=== PATIENT | female | born 1970 | race Caucasian/White ===

== ENCOUNTER 2016-04-20 17:53 | Emergency (ER) | payer OTHER ==
[~2016-04-20] VITALS: Ht 154.3 cm; Wt 58.1 kg
[~2016-04-20 17:53] MED LIST: ALBUTEROL SULFAT3 M1 INH; BENZONATATE200 M1 PO; BUTRANS20 MCG/HR TOP; CYCLOBENZAPRINE5 M1; DESIPRAMINE HCL25 MG PO; DUONEB 3 MG/3 ML3 ML INH/SOL; INTUNIV4 MG PO; LEVAQUIN500 M1 PO; LEVAQUIN500 MG PO; LYRICA150 MG PO; MEDROL DOSEPAK1 PAC PO; MEDROL4 M2 PO; MULTIVITAMIN1 TAB PO; PERCOCET 325 MG1 TA2 PO; PRISTIQ100 MG PO; PROAIR HFA0.09 MG/Ac INH; PROPRANOLOL ER80 MG PO; TESSALON PERLE100 M1 PO; TESSALON PERLE100 MG PO; TIZANIDINE4 MG PO; TREXIMET 500 MG1 TAB PO; TUDORZA PR400 MCG/Ac INH; ZITHROMAX Z-PA250 M1 PO; ZITHROMAX250 M2 PO
[2016-04-20 18:12] VITALS: BP 102/68
--- NOTE | 2016-04-20 18:32 | ED INFLUENZA/URI COMPLAINT ---
History of Present Illness General Chief Complaint: Upper Respiratory Sx/Fever Stated Complaint: KIDNEY PAIN; COUGH; URI SYMPTOMS Source: patient, old records Exam Limitations: no limitations Vital Signs & Intake/Output Vital Signs & Intake/Output Vital Signs Date Time Temp Pulse Resp B/P Pulse O2 O2 Flow FiO2 Ox Delivery Rate 04/20 1812 98.5 77 20 102/68 98 Room Air ED Intake and Output 04/21 0000 04/20 1200 Intake Total 0 Output Total Balance 0 Intake, Oral 0 Patient 128 lb Weight Allergies Coded Allergies: methylprednisolone (Severe, SHORTNESS OF BREATH, HIVES 04/20/16) codeine (RASH, NIGHTMARES 04/20/16) morphine (BEHAVIORAL CHANGES 04/20/16) Reconcile Medications Aclidinium [place] (Tudorza Pressair) 400 MCG/Actuation ROMELIA 400 MCG INH BID PRN ASTHMA (Reported) Albuterol Sulfate (Proair Hfa) 0.09 MG/Actuation ROMELIA 2 PUFF INH PRN ASTHMA ( Reported) Albuterol Sulfate 3 ML NEB 1 Vial INH Q6H PRN SOB Benzonatate (Tessalon Perle) 100 MG CAPSULE 1 CAP PO TID BRONCHITIS Buprenorphine (Butrans) 20 MCG/HR TDM 1 PAT TOP QSAT PAIN (Reported) CYCLOBENZAPRINE HCL (Cyclobenzaprine Hydrochloride) (Unknown Strength) TAB ( Unknown Dose) UNKNOWN (Reported) Desipramine Hydrochloride (Desipramine HCl) 25 MG TAB 1-2 TAB PO QHS MIGRAINES (Reported) Desipramine Hydrochloride (Desipramine HCl) 25 MG TAB 1 TAB PO DAILY MIGRAINES (Reported) Desvenlafaxine Succinate (Pristiq ER) [address] 1 TAB PO DAILY MENTAL HEALTH (Reported) GUANFACINE HCL (Intuniv) [address] 1 TAB PO QAM ADHD (Reported) Levofloxacin (Levaquin) 500 MG TABLET 1 TAB PO DAILY bronchitis Levofloxacin (Levaquin) 500 MG TABLET 1 TAB PO DAILY BRONCHITIS Methylprednisolone. (Medrol) 4 MG TAB.DS.PK 1 DP PO AD BRONCHITIS 6 on day 1 then reduce by one tablet daily until gone Multivitamin (Multiple Vitamins) 1 TAB TAB 1 TAB PO DAILY SUPPLEMENT ( Reported) Prednisone 10 MG TABLET 0 PO DAILY bronchitis 5 tabs po day 1 4 tabs po day 2 3 tabs po day 3 2 tabs po day 4 1 tab po day 5 Pregabalin (Lyrica) 150 MG CAP 1 CAP PO BID FIBROMYALGIA (Reported) PROPRANOLOL HCL (Propranolol HCl ER) 80 MG CER 1 CAP PO QHS MIGRAINES ( Reported) SUMATRIPTAN SUCC/NAPROXEN SOD (Treximet 85-500 MG Tablet) 1 TAB TAB 1 TAB PO AD PRN MIGRAINES (Reported) TIZANIDINE HCL (Tizanidine) 4 MG TAB 1 TAB PO BID MIGRAINES (Reported) Triage Note: TRIAGE: PT TO ER C/C PROD COUGH W/GREEN AND BROWN PHLEGM REPORTED, RUNNY NOSE, FATIGUED, DIZZY, LOSS OF APPETITE, DRY MOUTH, R SIDE BACK PAIN, RT SIDE ABD PAIN, LUNG PAIN. ONSET WITH COUGHING 4 DAYS AGO. Triage Nurses Notes Reviewed? yes Onset: Gradual Duration: week(s): (1), constant Timing: recent history Severity: mild, moderate Severity Numbers: 5 Prior Episodes/Possible Cause: occassional episodes No Modifying Factors: none Associated Symptoms: cough, earache, muscle aches, nasal congestion, wheezing : No Patient currently breastfeeds: No HPI: Is a 45-year-old female with history of asthma current smoker who presents to emergency room for evaluation complaining of a productive cough of green to brown sputum associated with rhinorrhea and congestion left ear pain sore throat for the last 4 days associated with right lower abdominal pain and right-sided back pain for the past 2 days. She denies any nausea vomiting or diarrhea. She has not attempted taking any [id number] medications for her symptoms. There are no modifying factors or associated symptoms otherwise she's been using her nebulizer and inhalers with improvement however she's not sought care for the symptoms until today. There is no chest pain dizziness lightheadedness no sick contacts recent travel (GUILLERMO CHO) Past History Travel History Traveled to [place] past 21 day No Medical History Any Pertinent Medical History? see below for history Neurological: migraine, multiple sclerosis EENT: NONE Cardiovascular: NONE Respiratory: asthma Gastrointestinal: NONE Hepatic: NONE Renal: NONE Musculoskeletal: chronic back pain, disk herniation Psychiatric: anxiety, ADHD Endocrine: NONE Blood Disorders: NONE Cancer(s): NONE PHYSICIAN NON INVASIVE CARDIOLOGIST/Reproductive: NONE Surgical History Surgical History: hysterectomy, NERVE STIMULATOR REMOVAL Psychosocial History Who do you live with Family Services at Home None What is your primary language Senegalese Tobacco Use: Current Daily Use Daily Tobacco Use Amount/Type: => 5 Cigarettes daily ETOH Use: occasional use Illicit Drug Use: denies illicit drug use Family History Hx Contributory? No (GUILLERMO CHO) Review of Systems Review of Systems Constitutional: Reports: see HPI. All Other Systems: Reviewed and Negative Comments Review of systems: See HPI, All other systems negative. Constitutional, chills no fever, no malaise HEENT: no sore throat congestion, ear pain Cardiovascular: No chest pain , no palpitation Skin, no jaundice no rashes, no change in skin Respiratory: No dyspnea cough no sputum no hemoptysis GI: No nausea no vomiting, no diarrhea, no bloating/constipation : No dysuria No hematuria, no frequency, no discharge Muscle skeletal: No joint pain, no joint swelling, no back pain, no neck pain, Neurologic: No numbness, no headache Psych: No stress n Heme/endocrine: No bruising no bleeding Immunology: No lymphadenopathy, (GUILLERMO CHO) Physical Exam Physical Exam General Appearance: well developed/nourished, no apparent distress, alert, awake Ears, Nose, Throat: normal ENT inspection, moist mucous membrane, hearing grossly normal, Tympanic normal Comments: Well-developed well-nourished person in no acute distress Head/Face: Atraumatic, no maxillary/frontal sinus tenderness, no facial swelling Eyes: PERRL, EOMI, no conjunctival injection. No nystagmus Ear:External auditory canal and Tympanic membranes clear, no erythema, no FB. Nose: atraumatic.Normal inspection: No bleeding, no septal hematoma Throat: Moist mucous membranes.Pharynx normal. No pharyngeal erythema/exudate seen. No stridor/drooling or assymetry. No swelling or edema. Neck: Supple, no lymphadenopathy, FROM Back: Nontender, no CVA tenderness. Full range of motion Cardiovascular: Regular rate and rhythms no murmurs rubs Respiratory: Chest nontender.There were no bony deformities, no asymmetry. No respiratory distress. Patient speaking in full complete sentences. Breath sounds clear to auscultation bilaterally: NO W/R/R Abdomen: Soft, nontender nondistended, no appreciable organomegaly. Normal bowel sounds. No rebound/guarding Extremity: No edema, full range of motion of extremities Neuro: Alert oriented x3, motor sensory normal, There were no obvious focal neurologic abnormalities. Skin: No appreciable rash on exposed skin, skin is warm and dry. Psych: Mood and affect is normal, memory and judgment is normal. Core Measures Severe Sepsis Present: No Septic Shock Present: No (GUILLERMO CHO) Progress Differential Diagnosis: influenza, otitis, pneumonia, pharyngitis, sinusitis, BRONCHITIS uti URI PYELONEPHRITIS Plan of Care: Orders Procedure Date/time Status RAPID VIRAL INFLUENZA A 04/20 1842 Complete URINALYSIS 04/20 1842 Complete CBC WITHOUT DIFFERENTIAL 04/20 1842 Complete BASIC METABOLIC PANEL 04/20 1842 Complete Laboratory Tests 04/20/161924: Urine Color YEL, Urine Clarity CLEAR, Urine pH 6.0, Ur Specific Orient 1.010, Urine Protein NEG, Urine Ketones NEG, Urine Nitrite NEG, Urine Bilirubin NEG, Urine Urobilinogen 0.2, Ur Leukocyte Esterase NEG, Ur Microscopic EXAM NOT REQUIRED, Urine Hemoglobin NEG, Urine Glucose NEG 04/20/161899: Anion Gap 8, Estimated GFR > 60, BUN/Creatinine Ratio 7.0, Glucose 72, Calcium 9.0, CBC w Diff NO MAN DIFF REQ, RBC 4.22, MCV 88.5, MCH 30.4, RDW 14.1, MPV 8.3 , Gran % 53.9, Lymphocytes % 35.2, Monocytes % 7.3, Eosinophils % 2.7, Basophils % 0.9, Absolute Granulocytes 4.3, Absolute Lymphocytes 2.8, Absolute Monocytes 0.6, Absolute Eosinophils 0.2, Absolute Basophils 0.1, PUBS MCHC 34.4 Microbiology 04/20 1899 NASOPHARYN: Influenza Virus A & B Rapid Smear - COMP Labs ordered old records reviewed patient afebrile nontoxic-appearing at this time Discussed with the patient at length all of her lab results x-ray findings. I discussed with her need for supportive care per scheduled for Levaquin was provided advised that she can continue with her inhalers and nebulizer treatments as needed abstain from smoking was discussed with the patient at length. Advised follow-up with her primary care physician in one day for return anytime sooner with any concerns they feel couple plan (GUILLERMO CHO) Diagnostic Imaging: Viewed by Me: Radiology Read. Discussed w/RAD: Radiology Read. Radiology Impression: PATIENT: ARTURO CORRALES PRESENT AGE: 45 PATIENT ACCOUNT NO: [id number] : 72 LOCATION: [facility] ORDERING PHYSICIAN: GUILLERMO CHAVEZ SERVICE DATE: 04/20/16 EXAM TYPE: RAD - XRY-CHEST XRAY, PA AND LATERAL EXAMINATION: XR CHEST 2 VIEWS CLINICAL INFORMATION: Fever and cough. COMPARISON: Prior chest radiographs, most recently 12/09/2015. TECHNIQUE: Frontal and lateral views of the chest were obtained. FINDINGS: The heart, great vessels, pulmonary vasculature and mediastinum are normal. The lungs show no focal infiltrate, effusion or pneumothorax. A small benign, calcified right upper lobe granuloma is unchanged. There is no acute osseous abnormality. IMPRESSION: No active cardiopulmonary disease. DICTATED BY: KANNAN VELASCO MD DATE/TIME DICTATED:04/20/161918 BOILER ENGINEER:GERALD DATE/TIME TRANSCRIBED:04/20/161918 CONFIDENTIAL, DO NOT COPY WITHOUT APPROPRIATE AUTHORIZATION. <Electronically signed in Other Vendor System> SIGNED BY: KANNAN VELASCO MD 04/20/161923 Initial ED EKG: none (GUILLERMO CHO) Departure Departure Time of Disposition: 1939 Disposition: HOME OR SELF CARE Condition: Stable Clinical Impression Primary Impression: Bronchitis Referrals: SONIDO LIM MD (PCP/Family) Additional Instructions: Levaquin as directed. Drink plenty of fluids Tylenol Motrin as needed abstain from smoking. Follow-up with her primary care physician this week return with any concerns. These prescriptions were sent to your pharmacy Departure Forms: Customer Survey General Discharge Information Prescriptions: Current Visit Scripts Levofloxacin (Levaquin) 1 TAB PO DAILY #7 TAB Prednisone 0 PO DAILY #15 TAB 5 tabs po day 1 4 tabs po day 2 3 tabs po day 3 2 tabs po day 4 1 tab po day 5 (GUILLERMO CHO) PA/SCIENTIFIC INVESTIGATOR Co-Sign Statement Statement: ED Attending supervision documentation- [] I saw and evaluated the patient. I have also reviewed all the pertinent lab results and diagnostic results. I agree with the findings and the plan of care as documented in the PA's/SCIENTIFIC INVESTIGATOR's documentation. [X] I have reviewed the ED Record and agree with the PA's/SCIENTIFIC INVESTIGATOR's documentation. [] Additions or exceptions (if any) to the PAs/SCIENTIFIC INVESTIGATOR's note and plan are summarized below: [] (AZIZA PAULINO,SELIN Watters)
[2016-04-20 19:04] LABS: ABSOLUTE BASOPHIL COUNT 0.1 /CUMM (0.0-0.2); ABSOLUTE EOSINOPHIL COUNT 0.2 /CUMM (0.0-0.7); ABSOLUTE GRANULOCYTE CT 4.3 /CUMM (1.4-6.5); ABSOLUTE LYMPH COUNT 2.8 /CUMM (1.2-3.4); ABSOLUTE MONOCYTE COUNT 0.6 /CUMM (0.10-0.60); BASOPHIL % 0.9 % (0.0-2.0); EOSINOPHIL % 2.7 % (0-5); GRANULOCYTE % 53.9 % (42.2-75.2); HEMATOCRIT 37.4 % (37-47); MEAN CORPUSCULAR HGB 30.4 PG (27.0-31.0); MEAN CORPUSCULAR HGB CONC 34.4 G/DL (33.0-37.0); MEAN CORPUSCULAR VOLUME 88.5 FL (81.0-99.0); MEAN PLATELET VOLUME 8.3 FL (7.4-10.4); PLATELET COUNT 255 /CUMM (130-400); RBC DISTRIBUTION WIDTH 14.1 % (11.5-14.5); RED BLOOD CELL CT 4.22 /CUMM (4.20-5.40); WHITE BLOOD CELL COUNT 8.1 /CUMM (4.8-10.8)
--- NOTE | 2016-04-20 19:24 | RADIOLOGY REPORT ---
EXAMINATION: XR CHEST 2 VIEWS CLINICAL INFORMATION: Fever and cough. COMPARISON: Prior chest radiographs, most recently 12/09/2015. TECHNIQUE: Frontal and lateral views of the chest were obtained. FINDINGS: The heart, great vessels, pulmonary vasculature and mediastinum are normal. The lungs show no focal infiltrate, effusion or pneumothorax. A small benign, calcified right upper lobe granuloma is unchanged. There is no acute osseous abnormality. IMPRESSION: No active cardiopulmonary disease.
[2016-04-20] MEDS ORDERED: LEVAQUIN500 M1 PO (19:41)
[2016-04-20] MEDS ORDERED: PREDNISONE10 M2 PO (19:41)
== END 2016-04-20 19:47 ==
LOC: ERH 17:53
PROVIDERS: Physician Assistant Medical
DX: J40 Bronchitis, not specified as acute or chronic (principal); Z72.0 Tobacco use; N23 Unspecified renal colic; H92.02 Otalgia, left ear; J02.9 Acute pharyngitis, unspecified
CPT/HCPCS: 81003; 87804; 87804-59

== ENCOUNTER 2016-06-08 05:40 | Emergency (ER) | payer OTHER ==
[~2016-06-08] VITALS: Ht 152.4 cm; Wt 58.1 kg
[~2016-06-08 05:40] MED LIST changes: +PREDNISONE10 M2 PO
--- NOTE | 2016-06-08 05:54 | ED INFLUENZA/URI COMPLAINT ---
History of Present Illness General Chief Complaint: Upper Respiratory Sx/Fever Stated Complaint: URI Source: patient Exam Limitations: no limitations Vital Signs & Intake/Output Vital Signs & Intake/Output Vital Signs Date Time Temp Pulse Resp B/P Pulse O2 O2 Flow FiO2 Ox Delivery Rate 06/08 0658 96.4 75 18 115/75 96 Room Air 06/08 0626 97 06/08 0554 96.1 63 20 111/54 100 Room Air Allergies Coded Allergies: methylprednisolone (Severe, SHORTNESS OF BREATH, HIVES 04/20/16) codeine (RASH, NIGHTMARES 04/20/16) morphine (BEHAVIORAL CHANGES 04/20/16) Reconcile Medications Aclidinium [place] (Tudorza Pressair) 400 MCG/Actuation ROMELIA 400 MCG INH BID PRN ASTHMA (Reported) Albuterol Sulfate (Proair Hfa) 0.09 MG/Actuation ROMELIA 2 PUFF INH PRN ASTHMA ( Reported) Albuterol Sulfate 3 ML NEB 1 Vial INH Q6H PRN SOB Azithromycin (Zithromax) 250 MG TABLET 1 DP PO AD BRONCHITIS 2 the first day followed by 1 for days 2-5 Benzonatate (Tessalon Perle) 100 MG CAPSULE 1 CAP PO TID BRONCHITIS Buprenorphine (Butrans) 20 MCG/HR TDM 1 PAT TOP QSAT PAIN (Reported) CYCLOBENZAPRINE HCL (Cyclobenzaprine Hydrochloride) (Unknown Strength) TAB ( Unknown Dose) UNKNOWN (Reported) Desipramine Hydrochloride (Desipramine HCl) 25 MG TAB 1-2 TAB PO QHS MIGRAINES (Reported) Desipramine Hydrochloride (Desipramine HCl) 25 MG TAB 1 TAB PO DAILY MIGRAINES (Reported) Desvenlafaxine Succinate (Pristiq ER) [address] TAB PO DAILY MENTAL HEALTH (Reported) GUANFACINE HCL (Intuniv) [address] 1 TAB PO QAM ADHD (Reported) Levofloxacin (Levaquin) 500 MG TABLET 1 TAB PO DAILY bronchitis Levofloxacin (Levaquin) 500 MG TABLET 1 TAB PO DAILY BRONCHITIS Methylprednisolone. (Medrol) 4 MG TAB.DS.PK 1 DP PO AD COPD 6 on day 1 then reduce by one tablet daily until gone Methylprednisolone. (Medrol) 4 MG TAB.DS.PK 1 DP PO AD BRONCHITIS 6 on day 1 then reduce by one tablet daily until gone Multivitamin (Multiple Vitamins) 1 TAB TAB 1 TAB PO DAILY SUPPLEMENT ( Reported) Prednisone 10 MG TABLET 0 PO DAILY bronchitis 5 tabs po day 1 4 tabs po day 2 3 tabs po day 3 2 tabs po day 4 1 tab po day 5 Pregabalin (Lyrica) 150 MG CAP 1 CAP PO BID FIBROMYALGIA (Reported) PROPRANOLOL HCL (Propranolol HCl ER) 80 MG CER 1 CAP PO QHS MIGRAINES ( Reported) SUMATRIPTAN SUCC/NAPROXEN SOD (Treximet 85-500 MG Tablet) 1 TAB TAB 1 TAB PO AD PRN MIGRAINES (Reported) TIZANIDINE HCL (Tizanidine) 4 MG TAB 1 TAB PO BID MIGRAINES (Reported) Triage Note: PT TO C/O SOB, COUGH, WHEZZING. Triage Nurses Notes Reviewed? yes Onset: Gradual Duration: week(s): (2) Timing: recent history Severity: moderate No Modifying Factors: none Associated Symptoms: cough, FEVER, THICK SPUTUM, BACK PAIN HPI: This is a 46 old female history of COPD currently smoking, recently diagnosed MS presents to the ER with chief complaint of 2 week history of cough, shortness of breath, thick sputum production and back pain. Positive fever and chills. Past History Travel History Traveled to [place] past 21 day No Medical History Any Pertinent Medical History? see below for history Neurological: migraine, multiple sclerosis EENT: NONE Cardiovascular: NONE Respiratory: asthma, COPD Gastrointestinal: NONE Hepatic: NONE Renal: NONE Musculoskeletal: chronic back pain, disk herniation Psychiatric: anxiety, ADHD Endocrine: NONE Blood Disorders: NONE Cancer(s): NONE SET ILLUSTRATOR/Reproductive: NONE Surgical History Surgical History: hysterectomy, NERVE STIMULATOR REMOVAL Psychosocial History Who do you live with Family Services at Home None What is your primary language Djiboutian Family History Hx Contributory? No Review of Systems Review of Systems Constitutional: Reports: chills, fever. EENTM: Reports: no symptoms. Respiratory: Reports: cough, short of breath, sputum production. Cardiovascular: Denies: chest pain. GI: Reports: no symptoms. Genitourinary: Reports: no symptoms. Musculoskeletal: Reports: no symptoms. Skin: Reports: no symptoms. Neurological/Psychological: Denies: anxiety, ataxia. Hematologic/Endocrine: Reports: no symptoms. Immunologic/Allergic: Denies: splenectomy. All Other Systems: Reviewed and Negative Physical Exam Physical Exam General Appearance: alert, awake, mild distress, thin Head: atraumatic, normal appearance Eyes: Bilateral: normal appearance, PERRL, EOMI. Ears, Nose, Throat: normal ENT inspection, hearing grossly normal, Tympanic normal, pharynx normal Neck: normal inspection, supple, full range of motion Respiratory: decreased breath sounds, wheezing Cardiovascular: regular rate/rhythm Peripheral Pulses: 2+ radial (R), 2+ radial (L) Gastrointestinal: normal bowel sounds, soft, non-tender Extremities: normal inspection, normal capillary refill, normal range of motion, no edema Neurologic/Psych: no motor/sensory deficits, awake, alert, oriented x 3 Skin: intact, normal color, warm/dry Core Measures Severe Sepsis Present: No Septic Shock Present: No Progress Differential Diagnosis: pneumonia, COPD EXACERBATION, BRONCHITIS Plan of Care: Orders Procedure Date/time Status RT ED ORDERS 06/08 600 Active DUONEB, PREDNISONE. CXR ORDERED. SMOKE CESSAITON COUNSELLING X 5 MINUTES. (MINA PAULINO,DWAYNE) Diagnostic Imaging: Viewed by Me: Radiology Read. Discussed w/RAD: Radiology Read. Initial ED EKG: none Comments: PATIENT: ARTURO TERAN PRESENT AGE: 46 PATIENT ACCOUNT NO: [id number] : 72 LOCATION: [facility] ORDERING PHYSICIAN: DWAYNE ENRIQUEZ MD SERVICE DATE: 06/08/16 EXAM TYPE: RAD - XRY-CHEST XRAY, PA AND LATERAL EXAMINATION: XR CHEST CLINICAL INFORMATION: Chest pain and cough. COMPARISON: Chest 04/20/2016 TECHNIQUE: 2 views of the chest were obtained. FINDINGS: Both lungs are well-expanded and clear of acute process. The heart size and pulmonary vascularity is normal. No gross bony abnormality seen. IMPRESSION: Unremarkable chest exam. DICTATED BY: ESTELA PEDRAZA MD DATE/TIME DICTATED:06/08/16723 BENEFITS COORDINATOR:GERALD DATE/TIME TRANSCRIBED:06/08/16723 CONFIDENTIAL, DO NOT COPY WITHOUT APPROPRIATE AUTHORIZATION. <Electronically signed in Other Vendor System> SIGNED BY: ESTELA PEDRAZA MD 06/08/1629 Departure Departure Time of Disposition: 640 Disposition: HOME OR SELF CARE Condition: Stable Clinical Impression Primary Impression: COPD exacerbation Secondary Impressions: Tobacco abuse, Tobacco abuse counseling Referrals: SONIDO LIM MD (PCP/Family) Additional Instructions: TAKE THE MEDROL DOSE PACK, AZITHROMYCIN DIRECTED. CONTINUE YOUR INHALERS AND YOUR ALBUTEROL NEBULIZER NEEDED. STOP SMOKING. FOLLOW UP WITH YOUR DOCTOR IN THE OFFICE. RETURN NEEDED. Departure Forms: Customer Survey General Discharge Information Prescriptions: Current Visit Scripts Azithromycin (Zithromax) 1 DP PO AD #6 TAB 2 the first day followed by 1 for days 2-5 Methylprednisolone. (Medrol) 1 DP PO AD #1 DP 6 on day 1 then reduce by one tablet daily until gone
[2016-06-08] MEDS ORDERED: MEDROL4 M2 PO (06:42)
[2016-06-08] MEDS ORDERED: ZITHROMAX250 M2 PO (06:42)
[2016-06-08 06:58] VITALS: BP 115/75
--- NOTE | 2016-06-08 07:29 | RADIOLOGY REPORT ---
EXAMINATION: XR CHEST CLINICAL INFORMATION: Chest pain and cough. COMPARISON: Chest 04/20/2016 TECHNIQUE: 2 views of the chest were obtained. FINDINGS: Both lungs are well-expanded and clear of acute process. The heart size and pulmonary vascularity is normal. No gross bony abnormality seen. IMPRESSION: Unremarkable chest exam.
== END 2016-06-08 07:01 ==
LOC: ERH 05:40
DX: J44.1 Chronic obstructive pulmonary disease with (acute) exacerbation (principal); Z71.6 Tobacco abuse counseling; F17.210 Nicotine dependence, cigarettes, uncomplicated
CPT/HCPCS: 1263; 1395

== ENCOUNTER 2016-07-10 23:39 | Emergency (ER) | payer OTHER ==
[~2016-07-10] VITALS: Ht 154.9 cm; Wt 59.0 kg
[2016-07-11 00:23] VITALS: BP 97/64
[2016-07-11] MEDS ORDERED: PYRIDIUM200 M1 PO (00:55)
[2016-07-11] MEDS ORDERED: KEFLEX500 M1 PO (00:55)
--- NOTE | 2016-07-11 00:56 | ED GI/GU/ABDOMINAL COMPLAINT ---
History of Present Illness General Chief Complaint: Female Urogenital Problems Stated Complaint: " ?UTI" Source: patient, old records Exam Limitations: no limitations Vital Signs & Intake/Output Vital Signs & Intake/Output Vital Signs Date Time Temp Pulse Resp B/P B/P Pulse O2 O2 Flow FiO2 Mean Ox Delivery Rate 07/11 0023 97.2 78 76 97/64 96 Room Air Allergies Coded Allergies: methylprednisolone (Severe, SHORTNESS OF BREATH, HIVES 04/20/16) codeine (RASH, NIGHTMARES 04/20/16) morphine (BEHAVIORAL CHANGES 04/20/16) Reconcile Medications Aclidinium [place] (Tudorza Pressair) 400 MCG/Actuation ROMELIA 400 MCG INH BID PRN ASTHMA (Reported) Albuterol Sulfate (Proair Hfa) 0.09 MG/Actuation ROMELIA 2 PUFF INH PRN ASTHMA ( Reported) Albuterol Sulfate 3 ML NEB 1 Vial INH Q6H PRN SOB Azithromycin (Zithromax) 250 MG TABLET 1 DP PO AD BRONCHITIS 2 the first day followed by 1 for days 2-5 Benzonatate (Tessalon Perle) 100 MG CAPSULE 1 CAP PO TID BRONCHITIS Buprenorphine (Butrans) 20 MCG/HR TDM 1 PAT TOP QSAT PAIN (Reported) Cephalexin (Keflex) 500 MG CAPSULE 1 CAP PO TID uti CYCLOBENZAPRINE HCL (Cyclobenzaprine Hydrochloride) (Unknown Strength) TAB ( Unknown Dose) UNKNOWN (Reported) Desipramine Hydrochloride (Desipramine HCl) 25 MG TAB 1-2 TAB PO QHS MIGRAINES (Reported) Desipramine Hydrochloride (Desipramine HCl) 25 MG TAB 1 TAB PO DAILY MIGRAINES (Reported) Desvenlafaxine Succinate (Pristiq ER) [address] TAB PO DAILY MENTAL HEALTH (Reported) GUANFACINE HCL (Intuniv) [address] 1 TAB PO QAM ADHD (Reported) Levofloxacin (Levaquin) 500 MG TABLET 1 TAB PO DAILY bronchitis Levofloxacin (Levaquin) 500 MG TABLET 1 TAB PO DAILY BRONCHITIS Methylprednisolone. (Medrol) 4 MG TAB.DS.PK 1 DP PO AD COPD 6 on day 1 then reduce by one tablet daily until gone Methylprednisolone. (Medrol) 4 MG TAB.DS.PK 1 DP PO AD BRONCHITIS 6 on day 1 then reduce by one tablet daily until gone Multivitamin (Multiple Vitamins) 1 TAB TAB 1 TAB PO DAILY SUPPLEMENT ( Reported) Phenazopyridine HCl (Pyridium) 200 MG TABLET 1 TAB PO TID PRN dysuria Prednisone 10 MG TABLET 0 PO DAILY bronchitis 5 tabs po day 1 4 tabs po day 2 3 tabs po day 3 2 tabs po day 4 1 tab po day 5 Pregabalin (Lyrica) 150 MG CAP 1 CAP PO BID FIBROMYALGIA (Reported) PROPRANOLOL HCL (Propranolol HCl ER) 80 MG CER 1 CAP PO QHS MIGRAINES ( Reported) SUMATRIPTAN SUCC/NAPROXEN SOD (Treximet 85-500 MG Tablet) 1 TAB TAB 1 TAB PO AD PRN MIGRAINES (Reported) TIZANIDINE HCL (Tizanidine) 4 MG TAB 1 TAB PO BID MIGRAINES (Reported) Triage Note: TRIAGE: PATIENT TO ER FROM HOME REPORTING "THINK I HAVE A UTI," +BURNING W/ URINATION AND 10/10 R SIDE OF LOW BACK PAIN, THOUGH REPORTS HX CHRONIC BACK PAIN. PATIENT ALSO REPORTING "I HAD A NEUROSTIMULATOR REMOVED FROM MY R BACK IN AND SINCE HAVE BEEN GETTING INFECTIONS AND PAIN AND MY PCP TOLD ME IT'S PROBABLY JUST SCAR TISSUE BUT I WANT TO GET IT CHECKED." Triage Nurses Notes Reviewed? yes LMP (ages 10-50): unknown ? n Is pt currently ? No Onset: Morning Duration: hour(s):, constant, continues in ED Timing: recent history Quality/Severity: aching, moderate Location: right flank, suprapubic Radiation: no radiation Activities at Onset: Urinating Prior Abdominal Problems: similar symptoms Past Sexual History: Unobtainable at this time Modifying Factors: Worsens With: urinating. Associated Symptoms: dysuria, lower back pain HPI: Several hours prior to admission patient complains of dysuria hematuria frequency hesitancy right flank discomfort similar to previous UTI symptoms. Several weeks prior to admission she was treated for UTI with Cipro. She also reports having frequent UTIs as a child. She denies fever chills nausea vomiting diarrhea chest pain cough shortness of breath headache rash. Past History Travel History Traveled to [place] past 21 day No Medical History Any Pertinent Medical History? 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 No Review of Systems Review of Systems Constitutional: Reports: see HPI, malaise. EENTM: Reports: no symptoms. Respiratory: Reports: no symptoms. Cardiovascular: Reports: no symptoms. GI: Reports: no symptoms. Genitourinary: Reports: see HPI, dysuria, frequency, hematuria, hesitation, pain, urgency. Musculoskeletal: Reports: no symptoms. Skin: Reports: no symptoms. Neurological/Psychological: Reports: no symptoms. Hematologic/Endocrine: Reports: no symptoms. Immunologic/Allergic: Reports: no symptoms. All Other Systems: Reviewed and Negative Physical Exam Physical Exam General Appearance: well developed/nourished, alert, awake, anxious Head: atraumatic, normal appearance Eyes: Bilateral: normal appearance, PERRL, EOMI, normal inspection. Ears, Nose, Throat, Mouth: hearing grossly normal, moist mucous membrane Neck: normal inspection, supple, full range of motion, normal alignment Respiratory: normal breath sounds, chest non-tender, no respiratory distress, quiet respiration, lungs clear Cardiovascular: regular rate/rhythm, normal peripheral pulses, norml femoral pulses equa Peripheral Pulses: 4+ carotid (R), 4+ carotid (L) Gastrointestinal: normal bowel sounds, soft, non-tender, no organomegaly Back: normal inspection, normal range of motion, CVA tenderness (R) Extremities: normal range of motion, no ligament instability Neurologic/Psych: no motor/sensory deficits, awake, alert, oriented x 3, normal gait, normal mood/affect, 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 No Severe Sepsis Present: No Septic Shock Present: No Progress Differential Diagnosis: UTI/pyelo Plan of Care: Orders Procedure Date/time Status CULTURE,URINE 07/10 2345 Active URINE 07/10 2345 Complete URINALYSIS 07/10 2345 Complete Laboratory Tests 07/11/16 0000: Urinalysis LIGHT H, Urine Color YEL, Urine Clarity HAZY H, Urine pH 7.0, Ur Specific [place] 1.020, Urine Protein 30 H, Urine Ketones 15 H, Urine Nitrite NEG, Urine Bilirubin NEG@ICTO, Urine Urobilinogen 1.0, Ur Leukocyte Esterase MOD H, Ur Microscopic SEDIMENT EXAMINED, Urine RBC 3-5, Urine WBC 15-25 H, Ur Epithelial Cells FEW, Urine Bacteria MANY H, Hyaline Casts 1-3 H, Urine Mucus MOD H, Urine Hemoglobin MOD H, Urine Glucose NEG, Urine Test NEGATIVE Microbiology 07/11 URINE ROUT: Urine Culture - RECD Initial ED EKG: none Departure Departure Time of Disposition: 52 Disposition: HOME OR SELF CARE Condition: Stable Clinical Impression Primary Impression: Urinary tract infection Qualifiers: Urinary tract infection type: site unspecified Hematuria presence: with hematuria Qualified Codes: N39.0 - Urinary tract infection, site not specified; R31.9 - Hematuria, unspecified Referrals: LAZARUS PAULINO,LAUREN Call for urology follow up. RAPHAEL PAULINO,SONIDO (PCP/Family) Departure Forms: Customer Survey General Discharge Information Prescriptions: Current Visit Scripts Phenazopyridine HCl (Pyridium) 1 TAB PO TID PRN dysuria #9 TAB Cephalexin (Keflex) 1 CAP PO TID #21 CAP
== END 2016-07-11 01:07 ==
LOC: ERH 23:39
DX: N39.0 Urinary tract infection, site not specified (principal)
CPT/HCPCS: 81001; 81025; 87086

== ENCOUNTER 2016-09-03 20:23 | Emergency (ER) | payer OTHER ==
[~2016-09-03 20:23] MED LIST changes: +KEFLEX500 M1 PO; +PYRIDIUM200 M1 PO
--- NOTE | 2016-09-03 21:02 | RADIOLOGY REPORT ---
EXAMINATION: XR CHEST CLINICAL INFORMATION: Productive cough, short of breath. COMPARISON: 06/08/2016. 10/16/2015. TECHNIQUE: 2 views of the chest were obtained. FINDINGS: The cardiomediastinal silhouette is unremarkable. There is a stable under 5 mm calcification right apex likely a small granuloma. The lungs and pleural spaces otherwise appear clear without evidence of congestion, consolidation, or significant appearing effusion or atelectasis. There is no evidence of pneumothorax or pulmonary edema. Included osseous structures appear largely unremarkable. IMPRESSION: No acute intrathoracic process is seen.
--- NOTE | 2016-09-03 22:01 | ED DYSPNEA/ASTHMA COMPLAINT ---
History of Present Illness General Chief Complaint: General Adult Stated Complaint: PT THINKS SHE HAS POSSIBLE PNEUMONIA Source: patient, family, old records Exam Limitations: no limitations Vital Signs & Intake/Output Vital Signs & Intake/Output Vital Signs Date Time Temp Pulse Resp B/P B/P Pulse O2 O2 Flow FiO2 Mean Ox Delivery Rate 09/04 0016 98.1 62 18 133/85 98 Room Air 09/03 2359 98 09/03 2237 94 09/04 2151 98.2 09/04 2151 98.2 09/04 2151 98 Room Air 09/03 2049 100.5 09/03 2046 100.5 80 16 100 Room Air ED Intake and Output 09/04 0000 09/03 1200 Intake Total 120 Output Total Balance 120 Intake, Oral 120 Patient 60.781 kg Weight Weight Reported by Patient Measurement Method Allergies Coded Allergies: methylprednisolone (Severe, SHORTNESS OF BREATH, HIVES 04/20/16) codeine (RASH, NIGHTMARES 04/20/16) morphine (BEHAVIORAL CHANGES 04/20/16) Reconcile Medications Albuterol Sulfate (Ventolin Hfa) 90 MCG HFA.AER.AD 2 PUF INH Q4-6 PRN PRN RESPIRATORY (Reported) Amoxicillin/Potassium Clav (Augmentin 875-125 Tablet) 875 MG-125 MG TABLET 1 TAB PO BID BRONCHITIS Azithromycin 250 MG TABLET 1 DP PO AD ANTIBIOTIC (Reported) 2 the first day followed by 1 for days 2-5 Buprenorphine (Butrans) 20 MCG/HOUR PATCH.TDWK 1 PAT TOP QFRI PAIN (Reported) Cholecalciferol (Vitamin D3) (Vitamin D) 2,000 UNIT CAPSULE 1 CAP PO DAILY SUPPLEMENT (Reported) Desipramine HCl 25 MG TABLET 1 TAB PO DAILY MIGRAINES (Reported) Desipramine HCl 25 MG TABLET 2 TAB PO QPM MIGRAINES (Reported) Desvenlafaxine Succinate (Pristiq ER) 100 MG TAB.ER.24H 1 TAB PO DAILY MENTAL HEALTH (Reported) Fluoxetine HCl 20 MG CAPSULE 2 CAP PO DAILY MENTAL HEALTH (Reported) Glycopyrrolate/Formoterol Fum (Bevespi Aerosphere Inhaler) 9 MCG-4.8 MCG HFA.AER.AD 2 PUFF INH BID ASTHMA (Reported) Guanfacine HCl (Intuniv) 4 MG TAB.ER.24H 1 TAB PO QAM ADHD (Reported) Interferon Beta-1a/Albumin (Rebif Titration Pack) 8.8-22(6) SYRINGE 1 SYR SC Thursday MS (Reported) Prednisone 20 MG TABLET 1 TAB PO TID STEROID (Reported) Prednisone 20 MG TABLET 40 MG PO DAILY COPD Pregabalin (Lyrica) 150 MG CAPSULE 1 CAP PO BID NERVE PAIN (Reported) Prochlorperazine Maleate 5 MG TABLET 1-2 TAB PO PRN MIGRAINES (Reported) Propranolol HCl (Propranolol HCl ER) 80 MG CAP.SA.24H 1 CAP PO DAILY MIGRAINES (Reported) Sumatriptan Succ/Naproxen Sod (Treximet 85-500 MG Tablet) 85 MG-500 MG TABLET 1 TAB PO AD PRN MIGRAINES (Reported) Triage Note: 46F C/O PROD COUGH W YELLOW/GREEN SPUTUM X1 WEEK, WENT TO WALK IN AND DX WITH BRONCHITIS AND PUT ON ZPACK WITHOUT IMPROVEMENT. ALSO PREDNISONE 20MG TID AND TAKING HOME NEBULIZER TX WITHOUT IMPROVEMENT. DENIES CHEST PAIN. +HEADACHE. O2 SAT 100% RA AND TEMP 100.5 IN TRIAGE, MEDICATED WITH TYLENOL Triage Nurses Notes Reviewed? yes : No Patient currently breastfeeds: No HPI: 46F PMH ASTHMA, COPD, ACTIVE SMOKER, with 1.5 weeks of shortness of breath and productive cough, initially thick green sputum and now thick yellow sputum, went to urgent care and has been taking 4 days of Azithromycin and Prednisone 40mg daily, with worsening of symptoms, bilateral wheezing, dyspnea, mild fever 100.5. Saturating 100% on room air, speaking in full sentences, appears comfortable. Denies chills, headache, sore throat, abdominal pain, diarrhea, dysuria. Reports chest tightness with breathing but no chest pain. Past History Travel History Traveled to [place] past 21 day No Medical History Any Pertinent Medical History? 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 No Review of Systems Review of Systems Constitutional: Reports: no symptoms. EENTM: Reports: no symptoms. Respiratory: Reports: see HPI. Cardiovascular: Reports: no symptoms. GI: Reports: no symptoms. Genitourinary: Reports: no symptoms. Musculoskeletal: Reports: no symptoms. Skin: Reports: no symptoms. Neurological/Psychological: Reports: no symptoms. Hematologic/Endocrine: Reports: no symptoms. Immunologic/Allergic: Reports: no symptoms. All Other Systems: Reviewed and Negative Physical Exam Physical Exam General Appearance: well developed/nourished, no apparent distress, alert, awake , comfortable Head: atraumatic, active bleeding Eyes: Bilateral: normal appearance. Ears, Nose, Throat: normal pharynx, normal ENT inspection Neck: normal inspection, supple, full range of motion Respiratory: bilateral rhonchi R>L Cardiovascular: regular rate/rhythm Gastrointestinal: soft, non-tender Extremities: normal inspection, normal capillary refill, no edema Core Measures ACS in differential dx? No Severe Sepsis Present: No Septic Shock Present: No Progress Differential Diagnosis: asthma, AMI, altitude sickness, bronchitis, costochondritis, CHF, COPD, musculoskeletal pain, pericarditis, pulmonary embolism, pneumonia, pneumothorax, rib fracture, unstable angina Plan of Care: Orders Procedure Date/time Status [facility] EVALUATION (GEN) 09/03 2158 Active Diagnostic Imaging: Viewed by Me: Radiology Read. Discussed w/RAD: Radiology Read. Radiology Impression: PATIENT: ARTURO TERAN PRESENT AGE: 46 PATIENT ACCOUNT NO: [id number] : 72 LOCATION: [facility] ORDERING PHYSICIAN: LILLY JOSEPH DO (TBS) SERVICE DATE: 09/03/16 EXAM TYPE: RAD - XRY-CHEST XRAY, PA AND LATERAL EXAMINATION: XR CHEST CLINICAL INFORMATION: Productive cough, short of breath. COMPARISON: 06/08/2016. 10/16/2015. TECHNIQUE : 2 views of the chest were obtained. FINDINGS: The cardiomediastinal silhouette is unremarkable. There is a stable under 5 mm calcification right apex likely a small granuloma. The lungs and pleural spaces otherwise appear clear without evidence of congestion, consolidation, or significant appearing effusion or atelectasis. There is no evidence of pneumothorax or pulmonary edema. Included osseous structures appear largely unremarkable. IMPRESSION: No acute intrathoracic process is seen. DICTATED BY: SACHIN SIDHU MD DATE/TIME DICTATED:09/03/162055 COMPETITIVE ATHLETE:GERALD DATE/TIME TRANSCRIBED:2055 CONFIDENTIAL, DO NOT COPY WITHOUT APPROPRIATE AUTHORIZATION. < Electronically signed in Other Vendor System> SIGNED BY: SACHIN SIDHU MD 09/03/162101 Initial ED EKG: normal sinus rhythm, no ST T wave changes Departure Departure Time of Disposition: 2328 Disposition: HOME OR SELF CARE Condition: Stable Clinical Impression Primary Impression: COPD exacerbation Secondary Impressions: Acute bronchitis Referrals: SONIDO LIM MD (PCP/Family) CHAPIN LEOS MD Departure Forms: Customer Survey General Discharge Information Prescriptions: Current Visit Scripts Prednisone 40 MG PO DAILY #10 TAB Amoxicillin/Potassium Clav (Augmentin 875-125 Tablet) 1 TAB PO BID #14 TAB Critical Care Note Critical Care Note Critical Care Time: 30-74 min
[2016-09-03] MEDS ORDERED: LYRICA150 M1 PO (22:14)
[2016-09-03] MEDS ORDERED: PRISTIQ ER100 MG PO (22:15)
[2016-09-03] MEDS ORDERED: REBIF 44 M44 MCG/0.5 SC (22:16)
[2016-09-03] MEDS ORDERED: PROPRANOLOL HCL80 M2 PO (22:17)
[2016-09-03] MEDS ORDERED: PREDNISONE20 M1 PO ×2 (22:17→23:13)
[2016-09-03] MEDS ORDERED: AZITHROMYCIN250 M1 PO (22:17)
[2016-09-03] MEDS ORDERED: PROCHLORPERAZINE5 M2 PO (22:18)
[2016-09-03] MEDS ORDERED: BUTRANS1 EAC2 TOP (22:18)
[2016-09-03] MEDS ORDERED: VENTOLIN HFA18 GM INH (22:18)
[2016-09-03] MEDS ORDERED: TREXIMET 85-501 EACH PO (22:18)
[2016-09-03] MEDS ORDERED: BEVESPI AEROS10.7 GM INH (22:19)
[2016-09-03] MEDS ORDERED: FLUOXETINE HCL20 M2 PO (22:19)
[2016-09-03] MEDS ORDERED: DESIPRAMINE HCL PO ×2 (22:20)
[2016-09-03] MEDS ORDERED: [UNRECOGNIZED DRUG - OTHER] SC (22:21)
[2016-09-03] MEDS ORDERED: INTUNIV4 M1 PO (22:22)
[2016-09-03] MEDS ORDERED: VITAMIN D2000 UNIT PO (22:23)
[2016-09-03] MEDS ORDERED: AUGMENTIN 875-1 EACH PO (23:13)
[2016-09-04 00:16] VITALS: BP 133/85
== END 2016-09-04 00:18 ==
LOC: ERH 20:23
DX: J44.1 Chronic obstructive pulmonary disease with (acute) exacerbation (principal); R07.89 Other chest pain
CPT/HCPCS: 1263